=== PATIENT | female | born 1945 | race Caucasian/White ===

== ENCOUNTER 2019-12-02 10:47 | Observation (INO) | payer MEDICARE, BC ==
[~2019-12-02] VITALS: Ht 149.9 cm; Wt 90.9 kg
[~2019-12-02 10:47] MED LIST: ASPI-1009 PO; ATOR10TA87 PO; CALC-955 PO; CITA20TA28 PO; COU4T PO; DRON400T6 PO; FISH1CAP15 PO; IMD30T PO; LOP25T PO; METF-436 PO; MULT-1066 PO
[2019-12-02 11:19] LABS: BASOPHILS # (AUTO) 0.1 X10'3 (0-0.2); BASOPHILS % (AUTO) 0.8 % (0-1); EOSINOPHILS # (AUTO) 0.2 X10'3 (0-0.9); EOSINOPHILS % (AUTO) 2.3 % (0-6); HEMATOCRIT 41.2 % (35.0-45.0); LYMPHOCYTES # (AUTO) 3.8 X10'3 (1.1-4.8); LYMPHOCYTES % (AUTO) 51.5 % (21-51); MEAN CORPUSCULAR HEMOGLOBIN 31.3 PG (27.0-31.0); MEAN PLATELET VOLUME 8.6 FL (7.4-10.4); MONOCYTES # (AUTO) 0.7 X10'3 (0-0.9); MONOCYTES % (AUTO) 9.4 % (2-12); NEUTROPHILS # (AUTO) 2.6 X10'3 (1.8-7.7); PLATELET COUNT 202 X10'3 (140-440); RED BLOOD COUNT 4.48 X10'6 (4.20-5.60); RED CELL DISTRIBUTION WIDTH 13.4 % (11.5-14.5); WHITE BLOOD COUNT 7.4 X10'3 (4.5-11.0)
[2019-12-02] MEDS ORDERED: RIVA20TA PO (11:27)
[2019-12-02] MEDS ORDERED: LOSA25TA96 PO (11:29)
[2019-12-02] MEDS ORDERED: MIRT15TA PO (11:29)
[2019-12-02] MEDS ORDERED: CALC-825 PO (11:31)
[2019-12-02 11:35] LABS: ALANINE AMINOTRANSFERASE 21 U/L (12-78); ALBUMIN/GLOBULIN RATIO 0.6 (1.1-1.5); ALKALINE PHOSPHATASE 116 IU/L (46-116); ANION GAP 4 (8-16); ASPARTATE AMINO TRANSFERASE 24 U/L (10-37); BILIRUBIN,TOTAL 0.6 MG/DL (0.1-1.0); BLOOD UREA NITROGEN 13 MG/DL (7-18); BUN/CREATININE RATIO 14.8 (6.6-38.0); CALCIUM 8.8 MG/DL (8.5-10.1); CHLORIDE 106 MMOL/L (99-107); CREATININE 0.88 MG/DL (0.40-0.90); GLUCOSE 130 MG/DL (70-104); POTASSIUM 3.9 MMOL/L (3.5-5.1); SODIUM 140 MMOL/L (135-145); eGFR 62 ML/MIN
[2019-12-02 11:42] LABS: MAGNESIUM 1.7 MG/DL (1.5-2.4)
[2019-12-02 11:51] LABS: PLATELET ESTIMATE NORMAL; TOTAL CELLS COUNTED 100
--- NOTE | 2019-12-02 11:58 | NUR ---
PANDA CALLED BACK DR GROSS NOTIFIED
[2019-12-02] MEDS ORDERED: aspirin 325mg tablet PO ONE (12:00)
--- NOTE | 2019-12-02 12:15 | NUR ---
PT RECEIVED 324 ASA AND 1 NTG IN AMBULANCE, [facility] PHYSICIST ASTROPHYSICS FOR [place] AT BEDSIDE NOW, PT HAS 2 FRIENDS AT BEDSIDE VISITING, CHILDREN OUT OF AREA BUT DAUGHTER IS DRIVING FROM [place] NOW.
[2019-12-02] MEDS ORDERED: magnesium hydroxide 30ml (MOM) UD suspension PO PRN (13:20)
[2019-12-02] MEDS ORDERED: ondansetron/PF 4mg/2ml inj IV PRN (13:20)
[2019-12-02] MEDS ORDERED: nitroGLYCERIN 0.4mg SUBLingual tab SL PRN (13:20)
[2019-12-02] MEDS ORDERED: HYDROcodone/acetaminophen 5mg/325mg tablet PO PRN (13:20)
[2019-12-02] MEDS ORDERED: morphine 2 MG/ML inj. syringe IV PRN ×2 (13:20)
[2019-12-02] MEDS ORDERED: acetaminophen 325mg tablet PO PRN ×2 (13:20)
[2019-12-02] MEDS ORDERED: mag hydrox/Alum hydrox/simeth 30ml oral suspension PO PRN (13:20)
[2019-12-02 14:21] LABS: HEMOGLOBIN A1C 6.8 % (4.5-6.2)
[2019-12-02 14:30] VITALS: BP 122/74
--- NOTE | 2019-12-02 14:30 | NUR ---
received report from STEFAN menezes ,steam conditioner operator pt admitted to room 313,oriented to surroundings ,denies chest pain at this time
--- NOTE | 2019-12-02 18:29 | NUR ---
Problems reprioritized. Patient report given, questions answered & plan of care reviewed with STEFAN Garza.
--- NOTE | 2019-12-02 18:44 | NUR ---
received report from STEFAN Magallon
[2019-12-02 18:46] VITALS: BP 128/62
--- NOTE | 2019-12-02 18:47 | NUR ---
pt 13 on tele 26, television receiver analyzer notified
--- NOTE | 2019-12-02 18:54 | NUR ---
PAGER ID: [phone] MESSAGE: [email or web address] Paloma Aguirre needs CPAP for tonight. she does not have her home CPAP. thanks.
[2019-12-02] MEDS: isosorbide mononitrate 30mg tab.SR.24H PO SCH (20:39)
[2019-12-02] MEDS: losartan 25mg tablet PO SCH (20:39)
[2019-12-02] MEDS: atorvastatin 10mg tablet PO SCH (20:39)
[2019-12-02] MEDS: mirtazapine 15mg tablet PO SCH (20:40)
--- NOTE | 2019-12-02 20:46 | NUR ---
pt 313 on tele 27, television production assistant notified.
--- NOTE | 2019-12-02 21:17 | NUR ---
PAGER ID: [phone] MESSAGE: [email or web address] Paloma Aguirre needs an order for CPAP (usually wears q night, left at home) and possibly nystatin for under breast and groin, very red & moist. thanks. ext. [phone]
[2019-12-02 22:00] VITALS: BP 149/72
[2019-12-02] MEDS: nystatin 15 GM powder TP SCH (22:27)
--- NOTE | 2019-12-02 22:28 | NUR ---
pt on tele 26, telecommunications network planner notified
[2019-12-03] VITALS (15 sets, daily range): BP systolic 110–142; BP diastolic 54–81
[2019-12-03 04:36] LABS: BASOPHILS # (AUTO) 0.1 X10'3 (0-0.2); BASOPHILS % (AUTO) 0.7 % (0-1); EOSINOPHILS # (AUTO) 0.2 X10'3 (0-0.9); EOSINOPHILS % (AUTO) 2.9 % (0-6); HEMATOCRIT 40.3 % (35.0-45.0); HEMOGLOBIN 13.8 g/dl (12.0-16.0); LYMPHOCYTES # (AUTO) 2.8 X10'3 (1.1-4.8); LYMPHOCYTES % (AUTO) 37.6 % (21-51); MEAN CORPUSCULAR HEMOGLOBIN 31.7 PG (27.0-31.0); MEAN CORPUSCULAR HGB CONC 34.4 g/dL (33.0-36.5); MEAN CORPUSCULAR VOLUME 92.3 FL (78-98); MEAN PLATELET VOLUME 8.8 FL (7.4-10.4); MONOCYTES # (AUTO) 0.8 X10'3 (0-0.9); MONOCYTES % (AUTO) 10.7 % (2-12); NEUTROPHILS # (AUTO) 3.5 X10'3 (1.8-7.7); NEUTROPHILS % (AUTO) 48.1 % (42-75); PLATELET COUNT 202 X10'3 (140-440); RED BLOOD COUNT 4.36 X10'6 (4.20-5.60); RED CELL DISTRIBUTION WIDTH 13.3 % (11.5-14.5); WHITE BLOOD COUNT 7.3 X10'3 (4.5-11.0)
[2019-12-03 04:50] LABS: ANION GAP 5 (8-16); BLOOD UREA NITROGEN 13 MG/DL (7-18); BUN/CREATININE RATIO 14.9 (6.6-38.0); CALCIUM 8.9 MG/DL (8.5-10.1); CHLORIDE 105 MMOL/L (99-107); CHOL/HDL RATIO 2.9 (0.00-4.99); CHOLESTEROL 116 MG/DL (0-200); CREATININE 0.87 MG/DL (0.40-0.90); GLUCOSE 135 MG/DL (70-104); HDL CHOLESTEROL 40 MG/DL (35-60); LDL CHOLESTEROL 65 MG/DL (50-100); SODIUM 139 MMOL/L (135-145); TOTAL CARBON DIOXIDE 28.9 MMOL/L (24-32); TRIGLYCERIDES 71 MG/DL (20-135); eGFR 63 ML/MIN
--- NOTE | 2019-12-03 06:26 | NUR ---
gave report to STEFAN Centeno
--- NOTE | 2019-12-03 06:30 | NUR ---
Patient in room MED 313. I have received report from Kayla AVILES and had the opportunity to ask questions and assume patient care.
[2019-12-03] MEDS: nystatin 15 GM powder TP SCH ×3 (08:00→22:36)
[2019-12-03] MEDS: metoprolol tartrate 25mg tablet PO SCH (08:04)
[2019-12-03] MEDS: aspirin 81mg tablet.DR PO SCH (08:04)
[2019-12-03] MEDS: isosorbide mononitrate 30mg tab.SR.24H PO SCH ×2 (08:04→21:06)
[2019-12-03] MEDS: calcium carbonate/vitamin D3 tablet PO SCH (08:04)
[2019-12-03] MEDS: losartan 25mg tablet PO SCH ×2 (08:04→21:07)
[2019-12-03] MEDS ORDERED: LORazepam 0.5 MG tablet PO ONE (11:00)
[2019-12-03] MEDS ORDERED: verapamil 2.5 mg/ml inj IV ONE (12:01)
[2019-12-03] MEDS ORDERED: LIDOcaine 1% (10mg/ml)w/preservative injection 20ml MDV ONE (12:02)
[2019-12-03] MEDS ORDERED: iohexol 350 MG/ML 50ML vial IV ONE (12:02)
[2019-12-03] MEDS ORDERED: heparin 1,000unit/ml 10ml vial 10 ML ONE (12:02)
[2019-12-03] MEDS ORDERED: iohexol 350MG/ML 100ml bottle IV ONE (12:02)
[2019-12-03] MEDS ORDERED: nitroGLYCERIN-Tridil 50MG/D5W 250 ML IV ONE (12:02)
[2019-12-03] MEDS ORDERED: midazolam 2 mg/2 ml injection ONE (12:28)
[2019-12-03] MEDS ORDERED: fentaNYL/PF 50MCG/1 ML 2ML syringe ONE (12:29)
[2019-12-03 13:35] LABS: ISTAT HGB ART 13.9 g/dl (12.0-16.0); ISTAT Hct ART 41 %PCV (35-48); ISTAT O2 SATURATION ARTERIAL 94 % (95-98); ISTAT SOURCE ART
[2019-12-03 13:35] LABS: ISTAT Hct MIX 41 %PCV (35-48); ISTAT O2 SATURATION MIX VENOUS 61 % (60-80); ISTAT SOURCE MIX
--- NOTE | 2019-12-03 14:50 | NUR ---
Pt back from lab coordinator report received. Pt VSS. No s/s of distress.
[2019-12-03] MEDS: normal saline 1000ml 1,000 ML IV SCH (15:00)
--- NOTE | 2019-12-03 18:30 | NUR ---
Problems reprioritized. Patient report given, questions answered & plan of care reviewed with Kayla AVILES.
--- NOTE | 2019-12-03 19:22 | NUR ---
received report from STEFAN Centeno
[2019-12-03] MEDS: atorvastatin 10mg tablet PO SCH (21:00)
[2019-12-03] MEDS: mirtazapine 15mg tablet PO SCH (21:07)
[2019-12-03] MEDS: mineral oil/petrolatum, white cream 113gm jar TP SCH (22:36)
[2019-12-04] VITALS: BP 106/57
[2019-12-04] MEDS: normal saline 1000ml 1,000 ML IV SCH (01:00)
[2019-12-04 02:00] VITALS: BP 128/80
[2019-12-04 04:00] VITALS: BP 111/45
[2019-12-04 06:00] VITALS: BP 100/49
[2019-12-04 06:03] LABS: BASOPHILS % (AUTO) 0.5 % (0-1); EOSINOPHILS # (AUTO) 0.1 X10'3 (0-0.9); EOSINOPHILS % (AUTO) 1.9 % (0-6); HEMOGLOBIN 13.4 g/dl (12.0-16.0); LYMPHOCYTES # (AUTO) 2.4 X10'3 (1.1-4.8); LYMPHOCYTES % (AUTO) 30.9 % (21-51); MEAN CORPUSCULAR HEMOGLOBIN 31.7 PG (27.0-31.0); MEAN CORPUSCULAR HGB CONC 34.3 g/dL (33.0-36.5); MEAN CORPUSCULAR VOLUME 92.5 FL (78-98); MEAN PLATELET VOLUME 8.9 FL (7.4-10.4); MONOCYTES # (AUTO) 0.8 X10'3 (0-0.9); MONOCYTES % (AUTO) 10.5 % (2-12); NEUTROPHILS # (AUTO) 4.3 X10'3 (1.8-7.7); NEUTROPHILS % (AUTO) 56.2 % (42-75); PLATELET COUNT 190 X10'3 (140-440); RED BLOOD COUNT 4.22 X10'6 (4.20-5.60); RED CELL DISTRIBUTION WIDTH 13.5 % (11.5-14.5); WHITE BLOOD COUNT 7.6 X10'3 (4.5-11.0)
[2019-12-04 06:12] LABS: ALBUMIN 2.9 G/DL (3.4-5.0); ANION GAP 7 (8-16); BLOOD UREA NITROGEN 13 MG/DL (7-18); BUN/CREATININE RATIO 15.3 (6.6-38.0); CALCIUM 9.1 MG/DL (8.5-10.1); CHLORIDE 105 MMOL/L (99-107); CREATININE 0.85 MG/DL (0.40-0.90); GLUCOSE 122 MG/DL (70-104); POTASSIUM 3.9 MMOL/L (3.5-5.1); SODIUM 139 MMOL/L (135-145); TOTAL CARBON DIOXIDE 26.8 MMOL/L (24-32); eGFR 65 ML/MIN
--- NOTE | 2019-12-04 06:27 | NUR ---
gave report to STEFAN Mclean
--- NOTE | 2019-12-04 06:29 | NUR ---
Patient in room MED 313. I have received report from STEFAN Garza and had the opportunity to ask questions and assume patient care.
[2019-12-04] MEDS: calcium carbonate/vitamin D3 tablet PO SCH (07:34)
[2019-12-04] MEDS: aspirin 81mg tablet.DR PO SCH (07:34)
[2019-12-04] MEDS: isosorbide mononitrate 30mg tab.SR.24H PO SCH (07:34)
[2019-12-04 07:35] VITALS: BP_SYST 117
[2019-12-04] MEDS: losartan 25mg tablet PO SCH (07:35)
[2019-12-04] MEDS: metoprolol tartrate 25mg tablet PO SCH (07:35)
--- NOTE | 2019-12-04 07:48 | NUR ---
PAGER ID: [phone] MESSAGE: 313. pt. Paloma Aguirre. pt. had a positive MRSA nasal come back. thank you. STEFAN Brody [phone]
[2019-12-04] MEDS: nystatin 15 GM powder TP SCH (08:00)
[2019-12-04] MEDS: mineral oil/petrolatum, white cream 113gm jar TP SCH (08:52)
[2019-12-04] MEDS ORDERED: METF-950 PO (13:56)
--- NOTE | 2019-12-04 14:54 | NUR ---
pt. discharged from facility at 1133. pt. was wheeled down to private vehicle accompanied by staff and her daughter. pt. signed and understood all paperwork. pt. IV was d/c intact. there were no new meds to call in. pt. understands to make f/u appointment with her livestock farmworker. pt. left with all belongings.
--- NOTE | 2019-12-05 16:11 | NUR ---
Case Management DC follow up: spoke to pt via telephone. Reports "doing okay". Denies s/s infection at insertion site (R groin) r/t angiogram. Went over after care packet. directed pt to go back through DC packet that was sent home w/pt. Denies CP, emergent general pain, SOB, respiratory distress, NV, dizziness, syncope episodes, abd pain, CASSIDY, blurry vision. Verbalizes understanding of medications and why prescribed. Taking as ordered, no ase noted r/t polypharmacy/new meds. verbalizes understanding of s/s that would warrant 05-29/ER visit for evaluation. pt A1C 12/02/19 6.8. New Rx Metformin, pt does not understand why she needs this med. Advised pt to go over questions & concerns at follow up appt w/PCP. Acknowledges importance of scheduling/keeping appointments w/PCP Jorge 12/06/2019/referrals/specialists. Needs met, questions answered at DC. No further questions at this time.
== END 2019-12-04 11:35 | disposition home or self-care (01) ==
LOC: ER 10:48 → ED HOLD 13:17 → MED 3N 14:05
PROVIDERS: ADMIT Internal Medicine; ATTEND Internal Medicine
DX: I25.110 Atherosclerotic heart disease of native coronary artery with unstable angina pectoris (principal); I48.0 Paroxysmal atrial fibrillation; I10 Essential (primary) hypertension; E78.5 Hyperlipidemia, unspecified; E66.01 Morbid (severe) obesity due to excess calories; E11.9 Type 2 diabetes mellitus without complications; G47.33 Obstructive sleep apnea (adult) (pediatric); M19.90 Unspecified osteoarthritis, unspecified site; K21.9 Gastro-esophageal reflux disease without esophagitis; F32.9 Major depressive disorder, single episode, unspecified; Z95.1 Presence of aortocoronary bypass graft; Z99.89 Dependence on other enabling machines and devices; Z79.01 Long term (current) use of anticoagulants; Z79.82 Long term (current) use of aspirin; Z79.899 Other long term (current) drug therapy; Z88.0 Allergy status to penicillin; Z68.41 Body mass index [BMI] 40.0-44.9, adult
CPT/HCPCS: 36415; 71045; 80048; 80053; 80061; 82803; 82948; 83036; 83735; 83880; 84484; 85014; 85025; 87081; 93005; 93461; 94660; 94760; 99285; C1760; C1769; C1894; G0378; J1644; J2001; J2250; J3010; Q9967; 99152; 99153; A4620; A5120; A6258; J3490

== ENCOUNTER 2022-12-28 04:47 | Observation (INO) | payer MEDICARE, BC ==
[2022-12-28] VITALS (9 sets, daily range): BP systolic 129–187; BP diastolic 67–99
[~2022-12-28] VITALS: Ht 149.9 cm; Wt 90.0 kg
[~2022-12-28 04:47] MED LIST changes: +CALC-825 PO; -CALC-955 PO; -CITA20TA28 PO; -COU4T PO; -DRON400T6 PO; -FISH1CAP15 PO; +LOSA25TA96 PO; -METF-436 PO; +MIRT-116 PO; -MULT-1066 PO; +RIVA20TA PO
[2022-12-28 06:20] LABS: HEMOGLOBIN 13.3 g/dl (12.0-16.0); MEAN CORPUSCULAR HEMOGLOBIN 31.7 PG (27.0-31.0); MEAN CORPUSCULAR HGB CONC 33.7 g/dL (33.0-36.5)
[2022-12-28 06:24] LABS: HEMATOCRIT 39.5 % (35.0-45.0); MEAN CORPUSCULAR VOLUME 94.1 FL (78-98); MEAN PLATELET VOLUME 8.8 FL (7.4-10.4); PLATELET COUNT 163 X10'3 (140-440); RED CELL DISTRIBUTION WIDTH 13.4 % (11.5-14.5); WHITE BLOOD COUNT 6.3 X10'3 (4.5-11.0)
[2022-12-28] MEDS ORDERED: mag hydrox/Alum hydrox/simeth 30ml oral suspension PO ONE (06:35)
[2022-12-28 06:37] LABS: ALANINE AMINOTRANSFERASE 16 U/L (12-78); ALBUMIN 2.9 G/DL (3.4-5.0); ALBUMIN/GLOBULIN RATIO 0.6 (1.1-1.5); ALKALINE PHOSPHATASE 97 IU/L (46-116); ANION GAP 8 (8-16); ASPARTATE AMINO TRANSFERASE 24 U/L (10-37); BILIRUBIN,TOTAL 0.7 MG/DL (0.1-1.0); BLOOD UREA NITROGEN 17 MG/DL (7-18); CHLORIDE 104 MMOL/L (99-107); CREATININE 0.81 MG/DL (0.40-0.90); GLUCOSE 139 MG/DL (70-104); SODIUM 138 MMOL/L (135-145); TOTAL CARBON DIOXIDE 26.3 MMOL/L (24-32); TOTAL PROTEIN 7.7 G/DL (6.4-8.2); eGFR 68 ML/MIN
--- NOTE | 2022-12-28 07:02 | NUR ---
PT UP TO BATHROOM WITH MIN. ASSISTANCE.
[2022-12-28] MEDS ORDERED: PERFLUTREN PROTEIN-A MICROSPHR (Optison) 0.22 MG/ML 3ML VIAL IV ONE (07:45)
[2022-12-28] MEDS ORDERED: magnesium 4gm in 100ml NS 100 ML IV PRN (07:45)
[2022-12-28] MEDS ORDERED: MESSAGE TO PHARMACY PO ONE (07:45)
[2022-12-28] MEDS ORDERED: insulin Lispro (HumaLOG) vial - multi-dose SQ SCH (07:45)
[2022-12-28] MEDS ORDERED: acetaminophen 325mg tablet PO PRN ×2 (07:45)
[2022-12-28] MEDS ORDERED: ondansetron/PF 4mg/2ml inj IV PRN (07:45)
[2022-12-28] MEDS ORDERED: potassium Cl 40MEQ/1/2NS 520ml 520 ML IV PRN (07:45)
[2022-12-28] MEDS ORDERED: HYDROcodone/acetaminophen 5mg/325mg tablet PO PRN (07:45)
[2022-12-28] MEDS ORDERED: mag hydrox/Alum hydrox/simeth 30ml oral suspension PO PRN (07:45)
[2022-12-28] MEDS ORDERED: DEXTROSE 15 GM of carb/4 tabs (each vial/BOTTLE has 4 tablets) PO PRN ×2 (07:45)
[2022-12-28] MEDS ORDERED: HYDROcodone/acetaminophen 10/325mg tab PO PRN (07:45)
[2022-12-28] MEDS ORDERED: glucagon, human recombinant 1mg kit SUBCUT PRN (07:45)
[2022-12-28] MEDS ORDERED: dextrose 50%-water 50ml dispensing syringe IV PRN ×2 (07:45)
[2022-12-28] MEDS ORDERED: potassium Cl 20 mEq SR tablet PO PRN ×2 (07:45)
[2022-12-28] MEDS ORDERED: docusate sod 100mg capsule PO SCH (08:00)
[2022-12-28] MEDS ORDERED: K and/or MAG REPLACEMENT MC SCH (08:00)
[2022-12-28] MEDS ORDERED: nitroGLYCERIN 0.4mg SUBLingual tab SL PRN (08:35)
[2022-12-28] MEDS ORDERED: regadenoson 0.4mg/5ml syringe IV PRN (08:35)
[2022-12-28] MEDS ORDERED: aminophylline 250mg/10ml inj. IV PRN (08:35)
[2022-12-28] MEDS ORDERED: metoprolol tartrate 1mg/ml inj IV PRN (08:35)
[2022-12-28 08:40] LABS: PLATELET ESTIMATE NORMAL; TOTAL CELLS COUNTED 100
--- NOTE | 2022-12-28 12:03 | NUR ---
Patient arrived from ED and ambulated from to [facility]. Vital signs stable. A-fib on lunchroom monitor. Patient denies chest pain or shortness of breath.
[2022-12-28] MEDS ORDERED: ISOS60TA71 PO (13:32)
[2022-12-28] MEDS ORDERED: RIVA20TA PO (13:32)
[2022-12-28] MEDS ORDERED: METO-467 PO (13:33)
[2022-12-28] MEDS ORDERED: METO50TA16 PO (13:33)
[2022-12-28] MEDS ORDERED: ATOR10TA70 PO (13:33)
[2022-12-28] MEDS ORDERED: LOSA25TA41 PO (13:33)
[2022-12-28] MEDS ORDERED: WARF4TAB69 PO (13:33)
[2022-12-28] MEDS ORDERED: METF-1203 PO (13:34)
[2022-12-28] MEDS ORDERED: MIRT-87 PO (13:34)
--- NOTE | 2022-12-28 16:20 | NUR ---
PAGER ID: [phone] MESSAGE: RE: Paloma Aguirre ED HOLD in short stay. Lexiscan negative. Echo completed and results pending. Please call Brandie [phone]
--- NOTE | 2022-12-28 17:30 | NUR ---
Patient stable for discharge per MD orders. Vital signs stable, A.fib on registered nurse cardiac, denies chest pain at this time. Discharge instructions reviewed with patient. All questions answered. IV DCed canula intact. Patient sent home with all known belongings. Patient wheeled to V via wheelchair by RN.
[2022-12-28] MEDS ORDERED: rivaroxaban 20mg tablet PO SCH (18:00)
[2022-12-28] MEDS ORDERED: losartan 25mg tablet PO SCH (20:00)
[2022-12-28] MEDS ORDERED: enoxaparin 40mg/0.4ml syringe SQ SCH (20:00)
[2022-12-28] MEDS ORDERED: insulin glargine (Lantus) pen - multi-dose SQ SCH (21:00)
[2022-12-28] MEDS ORDERED: metoprolol tartrate 50mg tablet PO SCH (21:00)
[2022-12-28] MEDS ORDERED: mirtazapine 15mg tablet PO SCH (21:00)
[2022-12-29] MEDS ORDERED: atorvastatin 10mg tablet PO SCH (08:00)
[2022-12-29] MEDS ORDERED: isosorbide mononitrate 30mg tab.SR.24H PO SCH (08:00)
[2022-12-29] MEDS ORDERED: metoprolol tartrate 25mg tablet PO SCH (08:00)
[2022-12-29] MEDS ORDERED: aspirin 81mg, enteric-coated 1 TAB TABLET.DR PO SCH (08:00)
== END 2022-12-28 17:30 | disposition home or self-care (01) ==
LOC: ER 04:47 → ED HOLD 07:49
PROVIDERS: ADMIT Family Medicine; ATTEND Family Medicine
DX: R07.89 Other chest pain (principal); I48.0 Paroxysmal atrial fibrillation; E78.5 Hyperlipidemia, unspecified; I25.10 Atherosclerotic heart disease of native coronary artery without angina pectoris; I07.1 Rheumatic tricuspid insufficiency; I10 Essential (primary) hypertension; I25.2 Old myocardial infarction; Z79.01 Long term (current) use of anticoagulants; Z79.84 Long term (current) use of oral hypoglycemic drugs; Z88.0 Allergy status to penicillin; Z87.891 Personal history of nicotine dependence; Z95.1 Presence of aortocoronary bypass graft; Z79.899 Other long term (current) drug therapy
CPT/HCPCS: 36415; 71045; 78452; 80053; 83880; 84484; 85007; 85025; 93017; 93306; 99285; A9500; G0378; J2785; J1815

== ENCOUNTER 2024-06-20 08:28 | Inpatient (IN) | payer MEDICARE, BC ==
[~2024-06-20] VITALS: Ht 152.4 cm; Wt 84.0 kg
[~2024-06-20 08:28] MED LIST changes: +ATOR10TA70 PO; -ATOR10TA87 PO; -CALC-825 PO; -IMD30T PO; +ISOS60TA71 PO; -LOP25T PO; +LOSA25TA41 PO; -LOSA25TA96 PO; +METF-1203 PO; +METO-467 PO; +METO50TA16 PO; -MIRT-116 PO; +MIRT-87 PO
[2024-06-20] MEDS: LORazepam 2 mg/ml vial IV ONE (08:54)
[2024-06-20] MEDS: mag hydrox/Alum hydrox/simeth 30ml oral suspension PO ONE (08:54)
[2024-06-20] MEDS: aspirin 81mg tab.chew PO ONE (08:54)
[2024-06-20 09:32] LABS: ALANINE AMINOTRANSFERASE 17 U/L (12-78); ALBUMIN 3.1 G/DL (3.4-5.0); ALBUMIN/GLOBULIN RATIO 0.6 (1.1-1.5); ALKALINE PHOSPHATASE 89 IU/L (46-116); ANION GAP 6 (8-16); ASPARTATE AMINO TRANSFERASE 20 U/L (10-37); BILIRUBIN,TOTAL 0.9 MG/DL (0.1-1.0); BLOOD UREA NITROGEN 11 MG/DL (7-18); BUN/CREATININE RATIO 15.5 (10.0-20.0); CALCIUM 9.6 MG/DL (8.5-10.1); CHLORIDE 102 MMOL/L (99-107); CREATININE 0.71 MG/DL (0.40-0.90); GLUCOSE 137 MG/DL (70-104); POTASSIUM 3.9 MMOL/L (3.5-5.1); SODIUM 135 MMOL/L (135-145); TOTAL CARBON DIOXIDE 27.1 MMOL/L (24-32); TOTAL PROTEIN 7.9 G/DL (6.4-8.2); eCRCL 45 ML/MIN; eGFR 79 ML/MIN
[2024-06-20 09:42] LABS: PRO BRAIN NATRIURETIC PEPTIDE 570 PG/ML (0-450)
[2024-06-20 09:46] LABS: BASOPHILS % (AUTO) 0.5 % (0-1); EOSINOPHILS # (AUTO) 0.2 X10'3 (0-0.9); EOSINOPHILS % (AUTO) 3.2 % (0-6); HEMATOCRIT 39.6 % (35.0-45.0); HEMOGLOBIN 13.3 g/dl (12.0-16.0); LYMPHOCYTES # (AUTO) 2.1 X10'3 (1.1-4.8); LYMPHOCYTES % (AUTO) 35.4 % (21-51); MEAN CORPUSCULAR HEMOGLOBIN 32.6 PG (27.0-31.0); MEAN CORPUSCULAR HGB CONC 33.5 g/dL (33.0-36.5); MEAN CORPUSCULAR VOLUME 97.1 FL (78-98); MONOCYTES # (AUTO) 0.6 X10'3 (0-0.9); MONOCYTES % (AUTO) 9.9 % (2-12); PLATELET COUNT 181 X10'3 (140-440); RED BLOOD COUNT 4.08 X10'6 (4.20-5.60); RED CELL DISTRIBUTION WIDTH 13.5 % (11.5-14.5); WHITE BLOOD COUNT 5.9 X10'3 (4.5-11.0)
[2024-06-20] MEDS ORDERED: mag hydrox/Alum hydrox/simeth 30ml oral suspension PO PRN (11:20)
[2024-06-20] MEDS ORDERED: magnesium sulf-water 2g/50mL 50 ML IV PRN (11:20)
[2024-06-20] MEDS ORDERED: magnesium Cl slow-release 64mg tablet PO PRN (11:20)
[2024-06-20] MEDS ORDERED: potassium Cl 40MEQ/1/2NS 520ml 520 ML IV PRN (11:20)
[2024-06-20] MEDS ORDERED: ondansetron/PF 4mg/2ml inj IV PRN (11:20)
[2024-06-20] MEDS ORDERED: morphine 2 MG/ML inj. syringe IV PRN ×2 (11:20)
[2024-06-20] MEDS ORDERED: magnesium sulf-water 4G/100mL 100 ML IV PRN (11:20)
[2024-06-20] MEDS ORDERED: potassium Cl 20 mEq SR tablet PO PRN (11:20)
[2024-06-20] MEDS ORDERED: magnesium hydroxide 30ml (MOM) UD suspension PO PRN (11:20)
[2024-06-20] MEDS ORDERED: acetaminophen 325mg tablet PO PRN ×2 (11:20)
[2024-06-20] MEDS ORDERED: LORazepam 0.5 MG tablet PO PRN (12:45)
[2024-06-20 13:33] LABS: CHOL/HDL RATIO 2.1 (0.00-4.99); CHOLESTEROL 106 MG/DL (0-200); HDL CHOLESTEROL 51 MG/DL (35-60); LDL CHOLESTEROL 50 MG/DL (50-100); TRIGLYCERIDES 62 MG/DL (20-135)
[2024-06-20 13:39] LABS: HEMOGLOBIN A1C 6.3 % (4.5-6.2)
[2024-06-20] MEDS: furosemide 10 MG/1 ML 10ml inj IV ONE (14:08)
[2024-06-20] MEDS: rivaroxaban 20mg tablet PO SCH (19:13)
[2024-06-20] MEDS: docusate sod 100mg capsule PO SCH (20:00)
[2024-06-20] MEDS: K and/or MAG REPLACEMENT MC SCH (20:00)
[2024-06-20] MEDS: losartan 25mg tablet PO SCH (20:49)
[2024-06-20] MEDS: metoprolol tartrate 50mg tablet PO SCH (20:49)
[2024-06-20] MEDS: mirtazapine 15mg tablet PO SCH (20:54)
[2024-06-20 23:08] VITALS: PULSE 82; RESP 22; O2SAT 96
[2024-06-21] VITALS (15 sets, daily range): BP systolic 97–145; BP diastolic 47–67; PULSE 59–97; RESP 13–24; TEMP 97.1; O2SAT 93–99
[2024-06-21 04:35] LABS: ALANINE AMINOTRANSFERASE 20 U/L (12-78); ALBUMIN 3.2 G/DL (3.4-5.0); ALBUMIN/GLOBULIN RATIO 0.6 (1.1-1.5); ALKALINE PHOSPHATASE 84 IU/L (46-116); ANION GAP 5 (8-16); ASPARTATE AMINO TRANSFERASE 27 U/L (10-37); BILIRUBIN,TOTAL 0.8 MG/DL (0.1-1.0); BLOOD UREA NITROGEN 16 MG/DL (7-18); BUN/CREATININE RATIO 14.8 (10.0-20.0); CALCIUM 9.5 MG/DL (8.5-10.1); CHLORIDE 101 MMOL/L (99-107); CREATININE 1.08 MG/DL (0.40-0.90); GLUCOSE 103 MG/DL (70-104); MAGNESIUM 1.7 MG/DL (1.5-2.4); POTASSIUM 3.4 MMOL/L (3.5-5.1); SODIUM 139 MMOL/L (135-145); TOTAL CARBON DIOXIDE 33.5 MMOL/L (24-32); TOTAL PROTEIN 8.2 G/DL (6.4-8.2); eCRCL 30 ML/MIN; eGFR 49 ML/MIN
[2024-06-21 06:01] LABS: BASOPHILS # (AUTO) 0.1 X10'3 (0-0.2); BASOPHILS % (AUTO) 0.9 % (0-1); EOSINOPHILS # (AUTO) 0.2 X10'3 (0-0.9); EOSINOPHILS % (AUTO) 2.7 % (0-6); HEMATOCRIT 40.3 % (35.0-45.0); HEMOGLOBIN 13.3 g/dl (12.0-16.0); LYMPHOCYTES # (AUTO) 2.9 X10'3 (1.1-4.8); LYMPHOCYTES % (AUTO) 34.9 % (21-51); MEAN CORPUSCULAR HEMOGLOBIN 31.7 PG (27.0-31.0); MEAN CORPUSCULAR HGB CONC 32.8 g/dL (33.0-36.5); MEAN CORPUSCULAR VOLUME 96.6 FL (78-98); MONOCYTES # (AUTO) 0.8 X10'3 (0-0.9); MONOCYTES % (AUTO) 9.5 % (2-12); NEUTROPHILS # (AUTO) 4.3 X10'3 (1.8-7.7); PLATELET COUNT 185 X10'3 (140-440); RED BLOOD COUNT 4.18 X10'6 (4.20-5.60); RED CELL DISTRIBUTION WIDTH 13.3 % (11.5-14.5); WHITE BLOOD COUNT 8.3 X10'3 (4.5-11.0)
[2024-06-21] MEDS ORDERED: glucagon, human recombinant 1mg kit SUBCUT PRN (07:35)
[2024-06-21] MEDS ORDERED: dextrose 50%-water 50ml dispensing syringe IV PRN ×2 (07:35)
[2024-06-21] MEDS ORDERED: DEXTROSE 15 GM of carb/4 tabs (each vial/BOTTLE has 4 tablets) PO PRN ×2 (07:35)
[2024-06-21] MEDS ORDERED: aspirin 81mg, enteric-coated 1 TAB TABLET.DR PO SCH (08:00)
[2024-06-21] MEDS: metFORMIN 500mg tablet PO SCH (08:36)
[2024-06-21] MEDS: isosorbide mononitrate 30mg tab.SR.24H PO SCH (08:36)
[2024-06-21] MEDS: atorvastatin 10mg tablet PO SCH (08:37)
[2024-06-21] MEDS: metoprolol tartrate 25mg tablet PO SCH (08:40)
[2024-06-21] MEDS: aspirin 81mg, enteric-coated 1 TAB TABLET.DR PO SCH (08:41)
[2024-06-21] MEDS: furosemide 20 MG/2 ML vial IV ONE (13:40)
[2024-06-21] MEDS: potassium Cl 20 mEq SR tablet PO PRN (18:17)
[2024-06-21] MEDS ORDERED: furosemide 20 MG/2 ML vial IV SCH (20:00)
[2024-06-21] MEDS: furosemide 20 MG/2 ML vial IV SCH (22:38)
[2024-06-22 02:00] VITALS: BP 103/53; PULSE 65; RESP 15; TEMP 97.1; O2SAT 100
[2024-06-22 06:00] VITALS: BP 114/47; PULSE 78; RESP 19; TEMP 98.4; O2SAT 97
[2024-06-22 08:00] VITALS: RESP 19; O2SAT 97
[2024-06-22 08:35] LABS: EOSINOPHILS # (AUTO) 0.3 X10'3 (0-0.9); HEMOGLOBIN 14.2 g/dl (12.0-16.0); LYMPHOCYTES # (AUTO) 3.3 X10'3 (1.1-4.8); MONOCYTES # (AUTO) 0.9 X10'3 (0-0.9); NEUTROPHILS # (AUTO) 3.5 X10'3 (1.8-7.7); RED CELL DISTRIBUTION WIDTH 13.5 % (11.5-14.5); WHITE BLOOD COUNT 7.9 X10'3 (4.5-11.0)
[2024-06-22 08:37] LABS: BASOPHILS % (AUTO) 0.4 % (0-1); EOSINOPHILS % (AUTO) 3.6 % (0-6); HEMATOCRIT 42.4 % (35.0-45.0); LYMPHOCYTES % (AUTO) 41.1 % (21-51); MEAN CORPUSCULAR HEMOGLOBIN 32.6 PG (27.0-31.0); MEAN CORPUSCULAR HGB CONC 33.4 g/dL (33.0-36.5); MEAN CORPUSCULAR VOLUME 97.6 FL (78-98); MEAN PLATELET VOLUME 9.1 FL (7.4-10.4); MONOCYTES % (AUTO) 10.8 % (2-12); NEUTROPHILS % (AUTO) 44.1 % (42-75); PLATELET COUNT 205 X10'3 (140-440); RED BLOOD COUNT 4.34 X10'6 (4.20-5.60)
[2024-06-22 08:57] LABS: ALANINE AMINOTRANSFERASE 17 U/L (12-78); ALBUMIN 3.2 G/DL (3.4-5.0); ALBUMIN/GLOBULIN RATIO 0.6 (1.1-1.5); ALKALINE PHOSPHATASE 95 IU/L (46-116); ANION GAP 8 (8-16); ASPARTATE AMINO TRANSFERASE 36 U/L (10-37); BILIRUBIN,TOTAL 0.6 MG/DL (0.1-1.0); BLOOD UREA NITROGEN 36 MG/DL (7-18); BUN/CREATININE RATIO 28.8 (10.0-20.0); CALCIUM 9.7 MG/DL (8.5-10.1); CHLORIDE 95 MMOL/L (99-107); CREATININE 1.25 MG/DL (0.40-0.90); GLUCOSE 108 MG/DL (70-104); MAGNESIUM 1.8 MG/DL (1.5-2.4); POTASSIUM 4.8 MMOL/L (3.5-5.1); SODIUM 135 MMOL/L (135-145); TOTAL CARBON DIOXIDE 31.6 MMOL/L (24-32); TOTAL PROTEIN 8.4 G/DL (6.4-8.2); eCRCL 26 ML/MIN; eGFR 41 ML/MIN
[2024-06-22 11:00] VITALS: BP 91/45; PULSE 71; RESP 18; TEMP 97.9; O2SAT 98
[2024-06-22] MEDS ORDERED: FURO40TA4 PO (11:21)
[2024-06-22] MEDS ORDERED: FURO-150 PO (11:38)
[2024-06-22] MEDS ORDERED: FURO20TA4 PO (12:08)
== END 2024-06-22 17:12 | disposition home or self-care (01) | DRG 291 ==
LOC: ER 08:28 → ED HOLD 12:42 → CICU 2S 06-21 00:18 → PCU 3S 06-21 19:50
PROVIDERS: ADMIT Internal Medicine; ATTEND Internal Medicine
DX: I11.0 Hypertensive heart disease with heart failure (principal); I50.33 Acute on chronic diastolic (congestive) heart failure; F41.1 Generalized anxiety disorder; E11.9 Type 2 diabetes mellitus without complications; G47.33 Obstructive sleep apnea (adult) (pediatric); E78.5 Hyperlipidemia, unspecified; I48.0 Paroxysmal atrial fibrillation; I25.10 Atherosclerotic heart disease of native coronary artery without angina pectoris; Z95.1 Presence of aortocoronary bypass graft; Z88.0 Allergy status to penicillin; Z79.82 Long term (current) use of aspirin; Z79.899 Other long term (current) drug therapy
CPT/HCPCS: 36415; 71045; 80053; 80061; 82948; 83036; 83735; 83880; 84484; 85025; 87081; 93005; 94660; 94760; 96374; 99285; A4615; A6213; G0378; J1940; J2060